=== PATIENT | female | born 1980 | race Caucasian/White ===

== ENCOUNTER 2024-11-11 05:56 | Emergency (ER) | payer SELFPAY ==
[2024-11-11] VITALS (10 sets, daily range): BP systolic 93–138; BP diastolic 38–87; PULSE 64–80; RESP 14–18; TEMP 36.7–37.1; O2SAT 100; BMI 23.3
--- NOTE | ~2024-11-11 | US_ITS ---
CLINICAL HISTORY: vaginal bleeding, cramping, LMP 10 28 US OB 1st trimester transabdominal Comparison: None Findings: gestational age by last menstrual period is 9 weeks and 5 days. A pole is not identified. There is a 1.8 cm left ovarian cyst. Trace fluid is seen in the cul-de-sac. Clots/debris seen throughout the endometrial cavity and within the endocervical canal. A pole is not identified. A small amount of fluid is seen in the cul-de-sac. IMPRESSION: findings compatible with missed . Endometrial cavity and endocervical canal filled with retained products of conception/ blood products. pole not identified. 1.8 cm left ovarian cyst. This document has been electronically signed by: Abdon Domínguez MD on 11/11/2024 09:58:51
[2024-11-11 06:22] LABS: MANUAL DIFF FLAG NO
[2024-11-11 06:25] LABS: Basophils Absolute Auto 0.1 X10*3/uL (0.0-0.2); Basophils Percent Auto 0.6 % (0-2); Eosinophils Absolute Auto 0.2 X10*3/uL (0.0-0.4); Hematocrit 25.4 % (37.0-47.0); Hemoglobin 7.9 g/dl (12.0-16.0); Imm Gran Abs Auto 0.05 X10*3/uL (0.00-0.03); Imm Gran Pct Auto 0.4 % (0.0-0.4); Lymphocytes Absolute Auto 3.9 X10*3/uL (1.2-4.9); Lymphocytes Percent Auto 31.9 % (20-40); Mean Corpuscular HGB Conc 31.1 g/dl (31.0-35.0); Mean Corpuscular Hemoglobin 21.9 pg (27.0-33.0); Mean Corpuscular Volume 70.4 fL (80.0-98.0); Mean Platelet Volume 9.7 fL (9.4-12.3); Monocytes Absolute Auto 0.6 X10*3/uL (0.1-1.2); Monocytes Percent Auto 5.2 % (2-11); Neutrophils Absolute Auto 7.3 x10*3/uL (2.0-8.3); Neutrophils Percent Auto 59.9 % (45-73); Platelet Count 402 X10*3/uL (160-400); Red Blood Count 3.61 X10*6/uL (4.20-5.50); Red Cell Distribution Width 16.1 % (11.0-16.0); White Blood Count 12.2 X10*3/uL (4.8-10.8)
[2024-11-11 06:45] LABS: Alanine Aminotransferase 27 U/L (0-31); Albumin Level 4.2 g/dL (3.5-5.0); Alkaline Phosphatase 67 U/L (39-117); Anion Gap 13 (12-20); Aspartate Amino Transferase 25 U/L (5-31); Bilirubin Total 0.2 mg/dL (0.0-1.0); Blood Urea Nitrogen 5 mg/dL (9-16); Calcium 8.8 mg/dL (8.4-10.2); Carbon Dioxide 21 mmol/L (22-29); Chloride 111 mmol/L (96-108); Creatinine Clr Calc Pharmacy 83.3; Estimated Glomerular Filt Rate > 60; Glucose Random 117 mg/dL (60-115); HCG Quantitative 5341 mIU/mL; Lipase 27 U/L (8-78); Potassium 3.6 mmol/L (3.3-5.1); Sodium 141 mmol/L (135-145); Total Protein 7.3 g/dL (6.5-8.0)
--- NOTE | 2024-11-11 07:19 | ED_ITS ---
HPI - General Chief complaint: Vaginal Bleeding Stated complaint: miscarriage , vaginal bleeding, abd pain Time Seen by Provider: 11/11/24 07:10 Source: patient and family Mode of arrival: ambulatory Limitations: no limitations History of Present Illness ED Provider: Cesia Boone APRN HPI Narrative: 44 yo female with no known medical history presents to the ER with light vaginal bleeding, mild abdominal cramping x 3 days which became more severe last evening with increase in pain and heavier vaginal bleeding. Last night patient reports heavy bleeding with clots and tissue passed. She has changed her pad twice since then. Her LMP was 09/04. She has had one other miscarriage. She has had not other pregnancies. She is sexually active with one male partner, she is not using contraception. She has no [employer] here in the . She moved from [place] one year ago. Related Data Previous Rx's ?Medication ?Instructions ?Recorded ferrous gluconate 324 mg (38 mg 324 mg PO DAILY #30 tabs 11/11/24 iron) tablet oxycodone 5 mg tablet 5 mg PO Q8H PRN pain #9 tabs 11/11/24 Allergies Allergy/AdvReac Type Severity Reaction Status Date / Time No Known Allergies Allergy Verified 11/11/24 06:02 Review of Systems 2 Review of Systems: Yes all other systems are reviewed and are negative Constitutional: Constitutional: Reports no additional constitutional complaints, Denies body ache(s), Denies chills, Denies fever(s), Denies headache(s) and Denies weakness Eyes: Eyes: Reports no additional eye complaints and Denies change in vision ENT: Reports system reviewed and no additional complaints, except as documented, Denies dizziness, Denies headache(s), Denies nasal congestion, Denies nasal discharge and Denies neck pain Cardiovascular: Cardiovascular: Reports no additional cardiovascular complaints, Denies chest pain, Denies leg edema and Denies dyspnea Respiratory: Respiratory: Reports no additional respiratory complaints, Denies cough and Denies dyspnea Gastrointestinal: Gastrointestinal: Reports no additional gastrointestinal complaints, Reports abdominal pain, Denies diarrhea, Denies nausea and Denies vomiting Genitourinary: Genitourinary: Reports no additional female genitourinary complaints, Reports abnormal vaginal bleeding, Denies hematuria, Denies dysuria, Reports pelvic pain, Denies flank pain, Denies urinary incontinence, Denies urinary hesitancy, Denies urinary urgency, Denies vaginal discharge and Denies vaginal pruritus Musculoskeletal: Musculoskeletal: Reports no additional musculoskeletal complaints, Denies back pain, Denies arthralgias, Denies joint swelling, Denies neck pain, Denies numbness and Denies tingling Integumentary/Breasts: Skin/Breast: Reports system reviewed and no additional complaints, except as docu and Denies rash Neurologic: Reports system reviewed and no additional complaints, except as documented, Denies Abnormal speech present, Denies dizziness, Denies headache(s), Denies numbness, Denies tingling and Denies weakness [facility] Past Medical History Attestation statement: The following information was validated with the patient. Source: old records reviewed and nursing notes reviewed Physical Exam 2 Vital Signs: Vital Signs: Last Vital Signs Temp 98.1 F 11/11/24 13:15 Pulse 76 11/11/24 13:15 Resp 16 11/11/24 13:15 BP 108/62 11/11/24 13:15 Pulse Ox 100 11/11/24 13:15 O2 Del Method Room Air 11/11/24 13:15 BMI result Body Mass Index 23.3 Const: General: cooperative, healthy appearing, comfortable and no acute distress Orientation/consciousness: patient oriented x3 Limitations: no limitations HEENT: Head: Yes normal to inspection Ears: hearing grossly normal bilaterally General nose exam: Normal external nose present Face and sinus: Yes normal facial exam Mouth: Normal oral and palatal mucosa present Throat: Yes posterior oropharynx normal Eyes: General: appearance normal, both eyes and all related structures C onjunctivae: conjunctival abnormal bilateral pallor Pupils: Equal, round and reactive pupils present Neck: Neck: Yes normal visual inspection Chest: Chest palpation & inspection: normal inspection of the chest Resp: Effort & Inspection: normal respiratory effort Auscultation: clear to auscultation bilaterally Cardio: Rate: regular rate Rhythm: regular rhythm Peripheral pulses: P eripheral pulses 2+ throughout GI: Inspection: Yes normal to inspection Palpation (GI): Soft to palpation, Tenderness to palpation present (GI) in the LLQ and in the RLQ; with no rebound tenderness and no guarding Auscultation: normal bowel sounds Back/Spine/Pelvis: Thoracic/Lumbar Spine: thoracic and lumbar spine normal to inspection Skin: General skin exam: no rashes or lesions noted Neuro: General: patient oriented x3, no focal motor deficits and normal sensation to monofilament Cranial nerves: Yes Equal, round and reactive pupils present Cognition (Neuro): normal cognition Speech: No Abnormal speech present Gait exam (Neuro): Normal gait present Motor exam (neuro): 5/5 motor strength present throughout Extrem: General: Yes normal to inspection Course Course Course Narrative: 0750-HGB 7.3, hct 23.4. BP 93 systolic. Fluids started. Signed consent for 2 units prbc. Called and spoke to blood bank, will be ready in 10 minutes. Patient reports she had some more bleeding when she used the bathroon and changed one pad. On exam she has some tissue noted in the cervical OS and a small amount of bleeding observed. US pending. Reevaluation(s) Reevaluation #1: 1030-US shows retained POC. Spoke to OB (Dewayne) who will come in to see the patient. She has had multiple stable blood pressures. Her 2nd unit of PRBC is infusing and then I will repeat a CBC. Reevaluation #2: 1130-Dr. Buchanan he came in to see the patient at the bedside. He was able to evacuate some products of conception via pelvic exam. Patient's bleeding is stable. We discussed the patient. He recommend the patient's follow-up in 2 days with a repeat hCG and he will see her in the office. I am waiting for her 2nd unit of blood finish and then a repeat CBC prior to discharge Reevaluation #3: 1230-repeat CBC is much improved. Patient feels well. I will discharge her home with an iron supplement daily and oxycodone for pain as needed. I reviewed her follow-up instructions with Dr. Núñez. I also reviewed worrisome signs and symptoms with her and when to return to the emergency room. Comfortable plan for discharge home Medications Administered Discontinued Medications Generic Name Dose Route Start Last Admin Trade Name Freq PRN Reason Stop Dose Admin Sodium Chloride 1,000 mls @ 999 mls/hr 11/11/24 08:07 11/11/24 09:34 Ns IV 11/11/24 09:07 Infused .Q1H1M STA Infusion Morphine Sulfate 4 mg 11/11/24 07:18 11/11/24 07:58 Morphine Sulfate 4 Mg/Ml Cartridge IVPUSH 11/11/24 07:19 4 mg ONCE ONE Administration Protocol Medical Decision Making Medical Decision Making [facility] Narrative: 44 yo female healthy who last had a period 09/04 here with vaginal bleeding/lower abdominal pain with heavy bleeding and passing of tissue/clots last evening. On arrival patient has lower abdominal pain, TTP to bilateral lower quadrants with no rebound or guarding. Her initial CBC at 0615 has a hgb 7.9/hct 25.4. It seems she is not currently having heavy vaginal bleeding. She has no previous CBC for comparison. She is unaware of any history of anemia. HD she is stable. Will obtain type & screen, repeat CBC STAT Her quant is 5.41. Her urine is pending. I will perform a pelvic exam, obtain an US, consult OB Differential Diagnosis Differential Diagnoses: The differential diagnosis associated with the presentation includes ectopic , spontaneous AB, threatened MS, early Admission/Observation Consideration of admission/observation: Escalation of care including admission/observation considered US shows retained POC. Will need OB involvement and further management Consult Healthcare Provider Management of the patient was discussed with: Farm Instructor 1030-Spoke to Dr Buchanan who is coming in to see the patient Lab Data [facility] Lab Attestation statement: I reviewed the patient's lab results. 11/11/24 12:38 11/11/24 06:18 Labs: Lab Results 11/11/24 11/11/24 11/11/24 Range/Units 06:18 07:36 08:01 WBC 12.2 H 14.9 H (4.8-10.8) X10*3/uL RBC 3.61 L 3.32 L (4.20-5.50) X10*6/uL Hgb 7.9 L 7.3 L (12.0-16.0) g/dl Hct 25.4 L 23.4 L (37.0-47.0) % MCV 70.4 L 70.5 L (80.0-98.0) fL MCH 21.9 L 22.0 L (27.0-33.0) pg MCHC 31.1 31.2 (31.0-35.0) g/dl RDW 16.1 H 16.3 H (11.0-16.0) % Plt Count 402 H 363 (160-400) X10*3/uL MPV 9.7 9.8 (9.4-12.3) fL Immature Gran % (Auto) 0.4 0.5 H (0.0-0.4) % Neut % (Auto) 59.9 71.5 (45-73) % Lymph % (Auto) 31.9 22.1 (20-40) % [place] % (Auto) 5.2 4.4 (2-11) % Eos % (Auto) 2.0 1.1 (0-4) % Baso % (Auto) 0.6 0.4 (0-2) % Lymph # (Auto) 3.9 3.3 (1.2-4.9) X10*3/uL [place] # (Auto) 0.6 0.7 (0.1-1.2) X10*3/uL Eos # (Auto) 0.2 0.2 (0.0-0.4) X10*3/uL Baso # (Auto) 0.1 0.1 (0.0-0.2) X10*3/uL Abs Immat Gran (auto) 0.05 H 0.07 H (0.00-0.03) X10*3/uL Absolute Neuts (auto) 7.3 10.7 H (2.0-8.3) x10*3/uL Absolute Nucleated RBC 0.000 0.000 (0.0-0.012) X10*3/uL Nucleated RBC % (auto) 0.0 0.0 (0.0-0.2) /100WBC Sodium 141 (135-145) mmol/L Potassium 3.6 (3.3-5.1) mmol/L Chloride 111 H (96-108) mmol/L Carbon Dioxide 21 L (22-29) mmol/L Anion Gap 13 (12-20) BUN 5 L (9-16) mg/dL Creatinine 0.65 (0.5-1.4) mg/dL Estim Creat Clear Calc 83.3 Estimated GFR > 60 Random Glucose 117 H (60-115) mg/dL Calcium 8.8 (8.4-10.2) mg/dL Total Bilirubin 0.2 (0.0-1.0) mg/dL AST 25 (5-31) U/L ALT 27 (0-31) U/L Alkaline Phosphatase 67 (39-117) U/L Total Protein 7.3 (6.5-8.0) g/dL Albumin 4.2 (3.5-5.0) g/dL Lipase 27 (8-78) U/L Beta HCG, Quant 5341 mIU/mL Urine Color RED Urine Appearance Turbid Urine pH 5.5 (5.0-9.0) Ur Specific [place] >= 1.030 H (1.005-1.025) Urine Protein 300 (3+) H (Neg-Trace) mg/dL Urine Glucose (UA) 100 H (Negative) mg/dL Urine Ketones Negative (Negative) mg/dL Urine Blood Large (3+) H (Negative) Urine Nitrite Positive H (Negative) Ur Leukocyte Esterase Trace H (Negative) Urine RBC >20 H (0-2) /HPF Urine WBC 0-5 (0-5) /HPF Ur Squamous Epith Cells 11-20 (0-2) /HPF Urine Bacteria Trace (None Seen) Hyaline Casts 0-2 (0-2) /LPF Urine Test POSITIVE H (NEGATIVE) Chlam trachomat DNA PCR (Not Detect.) N.gonorrhoeae DNA (PCR) (Not Detect.) T. vaginalis (PCR) (Not Detect) Bact vaginosis (PCR) (Negative) C. krusei/glabrata (PCR) (Not Detect) Elaine group (PCR) (Not Detect) Blood Type A Positive Antibody Screen NEGATIVE Crossmatch See Detail 11/11/24 11/11/24 Range/Units 11:50 12:38 WBC 17.0 H (4.8-10.8) X10*3/uL RBC 4.06 L D (4.20-5.50) X10*6/uL Hgb 10.0 L D (12.0-16.0) g/dl Hct 30.8 L D (37.0-47.0) % MCV 75.9 L D (80.0-98.0) fL MCH 24.6 L (27.0-33.0) pg MCHC 32.5 (31.0-35.0) g/dl RDW 19.5 H (11.0-16.0) % Plt Count 307 (160-400) X10*3/uL MPV 9.7 (9.4-12.3) fL Immature Gran % (Auto) 0.5 H (0.0-0.4) % Neut % (Auto) 68.2 (45-73) % Lymph % (Auto) 25.0 (20-40) % [place] % (Auto) 5.7 (2-11) % Eos % (Auto) 0.2 (0-4) % Baso % (Auto) 0.4 (0-2) % Lymph # (Auto) 4.3 (1.2-4.9) X10*3/uL [place] # (Auto) 1.0 (0.1-1.2) X10*3/uL Eos # (Auto) 0.0 (0.0-0.4) X10*3/uL Baso # (Auto) 0.1 (0.0-0.2) X10*3/uL Abs Immat Gran (auto) 0.08 H (0.00-0.03) X10*3/uL Absolute Neuts (auto) 11.6 H (2.0-8.3) x10*3/uL Absolute Nucleated RBC 0.000 (0.0-0.012) X10*3/uL Nucleated RBC % (auto) 0.0 (0.0-0.2) /100WBC Sodium (135-145) mmol/L Potassium (3.3-5.1) mmol/L Chloride (96-108) mmol/L Carbon Dioxide (22-29) mmol/L Anion Gap (12-20) BUN (9-16) mg/dL Creatinine (0.5-1.4) mg/dL Estim Creat Clear Calc Estimated GFR Random Glucose (60-115) mg/dL Calcium (8.4-10.2) mg/dL Total Bilirubin (0.0-1.0) mg/dL AST (5-31) U/L ALT (0-31) U/L Alkaline Phosphatase (39-117) U/L Total Protein (6.5-8.0) g/dL Albumin (3.5-5.0) g/dL Lipase (8-78) U/L Beta HCG, Quant mIU/mL Urine Color Urine Appearance Urine pH (5.0-9.0) Ur Specific [place] (1.005-1.025) Urine Protein (Neg-Trace) mg/dL Urine Glucose (UA) (Negative) mg/dL Urine Ketones (Negative) mg/dL Urine Blood (Negative) Urine Nitrite (Negative) Ur Leukocyte Esterase (Negative) Urine RBC (0-2) /HPF Urine WBC (0-5) /HPF Ur Squamous Epith Cells (0-2) /HPF Urine Bacteria (None Seen) Hyaline Casts (0-2) /LPF Urine Test (NEGATIVE) Chlam trachomat DNA PCR NOT DETECTED (Not Detect.) N.gonorrhoeae DNA (PCR) NOT DETECTED (Not Detect.) T. vaginalis (PCR) NOT DETECTED (Not Detect) Bact vaginosis (PCR) NEGATIVE (Negative) C. krusei/glabrata (PCR) DETECTED A (Not Detect) Elaine group (PCR) NOT DETECTED (Not Detect) Blood Type Antibody Screen Crossmatch Independent Interpretation I performed an independent interpretation of an: Ultrasound Interpretation: I independently reviewed the US and agree with the rad report Radiology Impression Discussion of test interpretation with radiology: I have reviewed the radiologist's reading. Radiologist Impression: [place] [id number] Ultrasound Report Signed Patient: Danie Gomez MR#: [id number] : 1980 Acct:[id number] Age/Sex: 44 / F ADM Date: 11/11/24 Loc: .ED Attending Dr: Ordering Physician: Cesia Boone NP Date of Service: 11/11/24 Procedure(s): US OB pelvic and transvaginal Accession Number(s): [id number] cc: Cesia Boone NP; Physician,None ~ CLINICAL HISTORY: vaginal bleeding, cramping, LMP 10 28 US OB 1st trimester transabdominal Comparison: None Findings: gestational age by last menstrual period is 9 weeks and 5 days. A pole is not identified. There is a 1.8 cm left ovarian cyst. Trace fluid is seen in the cul-de-sac. Clots/debris seen throughout the endometrial cavity and within the endocervical canal. A pole is not identified. A small amount of fluid is seen in the cul-de-sac. IMPRESSION: findings compatible with missed . Endometrial cavity and endocervical canal filled with retained products of conception/ blood products. pole not identified. 1.8 cm left ovarian cyst. This document has been electronically signed by: Abdon Domínguez MD on 11/11/2024 09:58:51 Independent Historian Clinical information obtained from an independent historian. History obtained from or confirmed by: Spouse at bedside Discharge Plan Discharge Clinical Impression: Anemia, Spontaneous , Retained products of conception after miscarriage Patient Disposition: Home, Self-Care Instructions: Miscarriage (ED), Anemia (ED) Additional Instructions: On Wednesday morning go to the lab and have blood work drawn. There are orders placed in the computer for you. Call Dr. Buchanan's office to follow-up. Return for fever, increasing pain, increasing bleeding as discussed. Prescriptions: New oxycodone 5 mg tablet 5 mg PO Q8H PRN (Reason: pain) Qty: 9 0RF Rx Instructions: Partial Fill upon patient request. ferrous gluconate 324 mg (38 mg iron) tablet 324 mg PO DAILY Qty: 30 0RF Referrals: Physician,None [Primary Care Provider] - 1 Week Canelo Buchanan MD [Physician] - 2 days Interventions: ED Discharge Assessment Last Done: 11/11/24 13:15 Discharge Date/Time: 11/11/24 13:27 Print Language: Greek
[2024-11-11 07:40] LABS: MANUAL DIFF FLAG NO
--- NOTE | 2024-11-11 07:40 | PC.NURSE ---
this RN resumed care of pt at 0645. a&ox4. vss and up to date aside from being slightly hypotensive. nsr on the rn cardiac. pt presents to the ED w/ concern for a miscarriage. pt reports LMP 10/28 c/o lower abd pain and light vaginal bleeding for the past 3 days. pt reports sx has increased since last night and c/o 10/10 sharp abd pain and dark red vaginal bleeding w/ thick clots. pt reports hx of one previous miscarriage. denies any previous births. 18gIV placed in the right AC - medication administered per provider order. effectiveness pending. pt on RA w/o difficulty. no sob/wob noted. respirations even/unlabored. plan of care ongoing. call juan placed within reach.
[2024-11-11 07:41] LABS: Basophils Absolute Auto 0.1 X10*3/uL (0.0-0.2); Basophils Percent Auto 0.4 % (0-2); Eosinophils Absolute Auto 0.2 X10*3/uL (0.0-0.4); Eosinophils Percent Auto 1.1 % (0-4); Hematocrit 23.4 % (37.0-47.0); Hemoglobin 7.3 g/dl (12.0-16.0); Imm Gran Abs Auto 0.07 X10*3/uL (0.00-0.03); Imm Gran Pct Auto 0.5 % (0.0-0.4); Lymphocytes Absolute Auto 3.3 X10*3/uL (1.2-4.9); Lymphocytes Percent Auto 22.1 % (20-40); Mean Corpuscular HGB Conc 31.2 g/dl (31.0-35.0); Mean Corpuscular Volume 70.5 fL (80.0-98.0); Mean Platelet Volume 9.8 fL (9.4-12.3); Monocytes Absolute Auto 0.7 X10*3/uL (0.1-1.2); Monocytes Percent Auto 4.4 % (2-11); Neutrophils Absolute Auto 10.7 x10*3/uL (2.0-8.3); Neutrophils Percent Auto 71.5 % (45-73); Platelet Count 363 X10*3/uL (160-400); Red Blood Count 3.32 X10*6/uL (4.20-5.50); Red Cell Distribution Width 16.3 % (11.0-16.0); White Blood Count 14.9 X10*3/uL (4.8-10.8)
[2024-11-11] MEDS: Morphine Sulfate 4 MG/ML CARTRIDGE IVPUSH (07:58)
--- NOTE | 2024-11-11 08:05 | PC.NURSE ---
urine obtained/sent to lab. dark red blood w/ clots noted to be in urine specimen cup. provider notified/aware.
[2024-11-11 08:10] LABS: UPreg QC Valid YES; Urine Pregnancy POSITIVE (NEGATIVE)
[2024-11-11 08:15] LABS: Appearance Urine Turbid; Glucose Urine UA 100 mg/dL (Negative); Leukocyte Esterase Urine Trace (Negative); Nitrite Urine Positive (Negative); PH 5.5 (5.0-9.0); Specific Gravity - Urine >= 1.030 (1.005-1.025); UMIC TRIGGER UACC YES; Urine Blood Large (3+) (Negative); Urine Ketones Negative (Negative); Urine Protein 300 (3+) mg/dL (Neg-Trace)
[2024-11-11 08:25] LABS: Color Urine RED
[2024-11-11 08:26] LABS: Bacteria Urine Trace (None Seen); Hyaline Casts Urine 0-2 /LPF (0-2); RBC Urine >20 /HPF (0-2); UACC Culture Trigger YES; WBC Urine 0-5 /HPF (0-5)
[2024-11-11] MEDS: 0.9 % Sodium Chloride 1,000 ML 999 ML IV (08:33)
--- NOTE | 2024-11-11 08:35 | PC.NURSE ---
pelvic exam performed by provider. chaperoned by this RN. minimal amount of bleeding noted. pt tolerated well. pt turned/repositioned to comfort. pending 1st unit of PRBCs to be ready by blood bank at this time.
--- NOTE | 2024-11-11 08:50 | PC.NURSE ---
another 20gIV placed in the left hand prior to 1st unit of PRBC infusion. pt currently receiving 1st unit of PRBC at this time. vital signs remain stable. nsr on the tap builder. pt has no complaints. no complications noted. pt remains on RA w/o difficulty. no sob/wob noted. respirations remain even/unlabored. partner bedside for support. plan of care ongoing. call juan placed within reach.
--- NOTE | 2024-11-11 09:14 | PC.NURSE ---
pt having ultrasound completed at this time.
--- NOTE | 2024-11-11 10:26 | PM.GYNCN ---
[facility] - CN: HPI Data of Consult Consult date: 11/11/24 Primary Care Provider: None Physician Consult Narrative Narrative: I was consulted at 10:22 on Danie Gomez who is a 44 year old female presented to the emergency room at 06:00complaining of heavy vaginal bleeding associated Pelvic cramping and passage of blood clots tissues starting 04:00. Patient and the son, the patient started having spotting last 3 days. Upon arrival H&H was 7.5/35.4, repeat H&H and I would have to withdraw to 7.6-27 for hCG was 5341, blood type A positive. the patient to receive 1st unit of packed RBC and was in the process of receiving her 2nd unit when I arrived. A pelvic ultrasound on showed the following: IMPRESSION: findings compatible with missed . Endometrial cavity and endocervical canal filled with retained products of conception/ blood products. pole not identified. 1.8 cm left ovarian cyst. cc:: CC: OB REPLACED BY [facility] Social History Social History Smoked in Last 30 Days: No Use of substances other than those prescribed or required for medical reasons: No Advance Directives: No Advance Directives Information Provided: Yes Do you have a plan to hurt others: No Plan Patient : Yes Meds Allergies Allergy/AdvReac Type Severity Reaction Status Date / Time No Known Allergies Allergy Verified 11/11/24 06:02 [facility] [employer] Physical Exam Vitals Vital signs: Temp Pulse Resp BP Pulse Ox O2 Del Method 98.2 F 74 16 117/72 100 Room Air 11/11/24 10:20 11/11/24 10:20 11/11/24 10:20 11/11/24 10:20 11/11/24 09:27 11/11/24 09:27 BMI result Body Mass Index 23.3 Female Genitalia (Pelvic) Vagina: Nontender Cervix: Grossly normal Adnexa/Parametria: Adnexal Tenderness: None, Adnexal Mass: None, Parametrial Tenderness: None and Parametrial Mass: None Additional Comments: blood per vagina, cervix this was endocervical os removed using ring forceps [facility]UP[facility]ER[facility]Y [facility] - Results Labs 11/11/24 07:36 11/11/24 06:18 Labs: Short CBC 11/11/24 11/11/24 Range/Units 06:18 07:36 WBC 12.2 H 14.9 H (4.8-10.8) X10*3/uL Hgb 7.9 L 7.3 L (12.0-16.0) g/dl Hct 25.4 L 23.4 L (37.0-47.0) % Plt Count 402 H 363 (160-400) X10*3/uL BMP 11/11/24 06:18 Sodium 141 Potassium 3.6 Chloride 111 H Carbon Dioxide 21 L BUN 5 L Creatinine 0.65 Calcium 8.8 Liver Function 11/11/24 Range/Units 06:18 Total Bilirubin 0.2 (0.0-1.0) mg/dL AST 25 (5-31) U/L ALT 27 (0-31) U/L Alkaline Phosphatase 67 (39-117) U/L Albumin 4.2 (3.5-5.0) g/dL Urine 11/11/24 Range/Units 08:01 Urine Color RED Urine Appearance Turbid Urine pH 5.5 (5.0-9.0) Ur Specific [place] >= 1.030 H (1.005-1.025) Urine Protein 300 (3+) H (Neg-Trace) mg/dL Urine Glucose (UA) 100 H (Negative) mg/dL Urine Test POSITIVE H (NEGATIVE) Antibody Screen Antibody Screen NEGATIVE 11/11/24 07:36 Assessment and Plan (1) Complete : Status: Acute A Pelvic exam showed products of conception at the cervical os with blood per vagina, using ring forceps the tissues were removed from the cervix, bleeding stopped afterwards andthe patient stopped having pelvic cramping. Repeat pelvic exam after half an hour showed minimal blood per vagina Instructions were given to patient to come back to emergency room in case of fever above 100.4, and the pain, vaginal bleeding Follow-up in the office in 2 days with repeat hCG quant ( ordered) All questions answered, the patient verbalized understanding (2) Anemia: Status: Acute 2 units of packed RBCs were given to the patient. the patient is to be evaluated by the ER team , to ensure the pt is hemodynamically and clinically stable discharge home on iron sulfate 325 mg p.o. t.i.d.
--- NOTE | 2024-11-11 10:30 | PC.NURSE ---
pt tolerated 1st unit of PRBCs w/o any complications. vital signs remained stable throughout. nsr on the cardiac cath technologist. respirations even/unlabored. 2nd unit of PRBCs retrieved from blood bank/infusing at this time. will repeat labs s/p 2nd infusion. pt pending consult via dr. mcmahon at this time. plan of care ongoing. call juan placed within reach.
--- NOTE | 2024-11-11 11:35 | PC.NURSE ---
Addendum entered by Colleen Oswald 11/11/24 13:11: patient and significant other decided for the hospital to dispose of remains s/p procedure. proper documentation filled out/placed in pt's chart. yellow triplicate form filled out and sent to pathology w/ products of conception by tech. Original Note: procedure performed by dr. mcmahon - pt tolerated well. products of conception/swabs obtained/sent to lab by [facility].
[2024-11-11 12:46] LABS: MANUAL DIFF FLAG NO
--- NOTE | 2024-11-11 12:52 | PC.NURSE ---
2nd unit of PRBC completely infused at this time. pt tolerated well. no complications noted. repeat labs obtained/sent to lab.
[2024-11-11 12:53] LABS: Basophils Absolute Auto 0.1 X10*3/uL (0.0-0.2); Basophils Percent Auto 0.4 % (0-2); Eosinophils Percent Auto 0.2 % (0-4); Hematocrit 30.8 % (37.0-47.0); Imm Gran Abs Auto 0.08 X10*3/uL (0.00-0.03); Imm Gran Pct Auto 0.5 % (0.0-0.4); Lymphocytes Absolute Auto 4.3 X10*3/uL (1.2-4.9); Mean Corpuscular HGB Conc 32.5 g/dl (31.0-35.0); Mean Corpuscular Hemoglobin 24.6 pg (27.0-33.0); Mean Corpuscular Volume 75.9 fL (80.0-98.0); Mean Platelet Volume 9.7 fL (9.4-12.3); Monocytes Percent Auto 5.7 % (2-11); Neutrophils Absolute Auto 11.6 x10*3/uL (2.0-8.3); Neutrophils Percent Auto 68.2 % (45-73); Platelet Count 307 X10*3/uL (160-400); Red Blood Count 4.06 X10*6/uL (4.20-5.50); Red Cell Distribution Width 19.5 % (11.0-16.0)
[2024-11-11 12:54] LABS: Bacterial Vaginosis PCR NEGATIVE (Negative); Candida Group PCR NOT DETECTED (Not Detect); Candida glab krusei PCR DETECTED (Not Detect); Trichomonas vaginalis PCR NOT DETECTED (Not Detect)
[2024-11-11 13:26] LABS: CT PCR NOT DETECTED (Not Detect.); NG PCR NOT DETECTED (Not Detect.)
--- NOTE | 2024-11-11 13:26 | PC.NURSE ---
pt provided w/ loss packet prior to d/c.
== END 2024-11-11 13:27 | disposition home or self-care (01) ==
PROVIDERS: Nurse Practitioner Family; Obstetrics & Gynecology; Emergency Provider Emergency Medicine
DX: O03.9 Complete or unspecified spontaneous abortion without complication (principal); D64.9 Anemia, unspecified; N93.9 Abnormal uterine and vaginal bleeding, unspecified
CPT/HCPCS: 36415; 36430; 76801; 76817; 80053; 81001; 81025; 81515; 83690; 84702; 85025; 86850; 86900; 86901; 86923; 87086; 87491; 87591; 88305; 96361; 96374; 99285; J2270; P9016

== ENCOUNTER → 2024-11-11 06:20 | Outpatient (BNV) | payer SELFPAY | PROVIDERS: Emergency Provider Emergency Medicine; Visit Provider Obstetrics & Gynecology | DX: O03.9 Complete or unspecified spontaneous abortion without complication (principal); D64.9 Anemia, unspecified | CPT/HCPCS: 99283 ==

== ENCOUNTER 2024-11-13 12:37 | Outpatient (REF) | payer SELFPAY ==
[2024-11-13 13:33] LABS: HCG Quantitative 916 mIU/mL
== END 2024-11-13 12:38 | disposition home or self-care (01) ==
LOC: HO.LAB 12:37
PROVIDERS: Visit Provider Obstetrics & Gynecology
DX: O03.9 Complete or unspecified spontaneous abortion without complication (principal)
CPT/HCPCS: 36415; 84702; 99212

== ENCOUNTER 2024-11-13 14:38 | Outpatient (AMB) | payer SELFPAY ==
--- NOTE | 2024-11-13 14:46 | MHC.OFFVIS ---
Vital Signs 11/13/24 14:49 Weight 123 lb 7.342 oz Intake Visit Reasons: HCG follow up Accompanied by: Spouse Allergies No Known Allergies Allergy (Verified 11/13/24 14:48) HPI Comments Details: Presenting for ER follow-up after complete on 11/11/23. The patient received 2 units of packed RBCs in the emergency room H and H post transfusion was 10/30.8, since then the patient has been taking iron sulfate 325 mg p.o. b.i.d. The patient is doing well with no complaints minimal vaginal bleeding no pelvic cramping, no fever or chills. BV panel was positive for Elaine, the patient has no vulvovaginitis symptoms HCG dropped from 5341 on 11/11 down to 916 today Blood type A positive [facility] Female Reproductive History Menstrual Total pregnancies: 2 Ab spontaneous: 2 Review of Systems Const All systems reviewed & are unremarkable except as noted in HPI and below Physical Exam General: Yes no CVA tenderness External Female Exam: normal external appearance and normal appearance of the urethra Speculum Exam - Vagina: normal appearance of the vagina, normal palpation, no lesions and no masses Speculum Exam - Cervix: normal appearance of the cervix, normal palpation, no lesions, no masses and nontender Bimanual exam- vagina & uterus: normal bimanual exam, normal palpation, uterine size normal, normal palpation, uterine shape normal, No Cervical tenderness present and non-tender Bimanual Exam- Adnexa, other: normal adnexae Back/Spine/Pelvis Back: no CVA tenderness Assessment & Plan Assessment & Plan (1) Complete : Code(s): O03.9 - Complete or unspecified spontaneous without complication Category: Medical Plan: Repeat hCG in 2 weeks to follow it down to 0. Signs and symptoms of incomplete were discussed with the patient, instructions given the patient to call or go to the emergency in case fever above 100.4, pelvic pain and or vaginal bleeding and to schedule a follow-up appoint in 2 weeks. Offered the patient different method of control, the patient declined at this point. All questions answered, the patient verbalized understanding. Orders: Orders HCG Quantitative 2 Weeks O03.9 - Complete or unspecified spontaneous without complication Medications: Discontinued oxycodone Partial Fill upon patient request. Discontinued Reason: Patient Completed Course 5 mg PO Q8H PRN 9 tabs 0RF pain Coding Level of Care Code Est Pt Level 3 (19739) Diagnoses Complete O03.9
== END 2024-11-13 15:42 | disposition home or self-care (01) ==
LOC: HO.HWS 14:38
PROVIDERS: Visit Provider Obstetrics & Gynecology
DX: O03.9 Complete or unspecified spontaneous abortion without complication (principal)
CPT/HCPCS: 99213

== ENCOUNTER 2024-12-04 09:31 | Outpatient (AMB) | payer SELFPAY ==
--- NOTE | 2024-12-04 09:52 | A.OFFVIS_ITS ---
Intake Visit Reasons: HCG Check Per Dr. Buchanan Reconciliation Machine Operator: Reconciliation Machine Operator Present (Mayda) Accompanied by: Spouse Allergies No Known Allergies Allergy (Verified 12/04/24 09:53) HPI Comments Details: Presenting for follow-up after complete no complaints no pelvic cramping and or bleeding. HCG on 11/13/2024 was 916 Review of Systems Const All systems reviewed & are unremarkable except as noted in HPI and below Reports as per HPI and Reports no additional complaints GI Reports no additional complaints Reports no additional complaints Assessment & Plan Assessment & Plan (1) Complete : Code(s): O03.9 - Complete or unspecified spontaneous without complication Category: Medical Plan: Instructions were given to the patient to repeat hCG today if not down to non level will repeat hCG in 1-2 more weeks. Signs and symptoms of incomplete were discussed with the patient, she is to call or go to emergency room in case of pelvic cramping and or bleeding. All questions answered, the patient verbalized understanding. Coding Level of Care Code Est Pt Level 3 (50349) Diagnoses Complete O03.9
== END 2024-12-04 10:04 | disposition home or self-care (01) ==
LOC: HO.HWS 09:31
PROVIDERS: Visit Provider Obstetrics & Gynecology
DX: O03.9 Complete or unspecified spontaneous abortion without complication (principal)
CPT/HCPCS: 99213

== ENCOUNTER 2024-12-04 09:31 | Outpatient (REF) | payer SELFPAY ==
[2024-12-04 11:22] LABS: HCG Quantitative 6 mIU/mL
== END 2024-12-04 09:32 | disposition home or self-care (01) ==
LOC: HO.LAB 09:31
PROVIDERS: Visit Provider Obstetrics & Gynecology
DX: O03.9 Complete or unspecified spontaneous abortion without complication (principal)
CPT/HCPCS: 36415; 84702; 99212